=== PATIENT | female | born 1965 | race Two or more races ===

== ENCOUNTER 2016-08-19 19:53 | Emergency (ER) | payer OTHER ==
[~2016-08-19] VITALS: Ht 165.1 cm; Wt 93.9 kg
[~2016-08-19 19:53] MED LIST: LISIPOW; NOVOLOG
[2016-08-19] MEDS ORDERED: KETOROLAC TROMETH 60MG/2ML VIAL IM ONE (21:15)
[2016-08-19 21:23] VITALS: BP 153/77
== END 2016-08-19 22:03 | disposition home or self-care (01) ==
LOC: ER 19:58
DX: G44.209 Tension-type headache, unspecified, not intractable (principal)
CPT/HCPCS: 70450; 96372; 99284; J1885

== ENCOUNTER 2022-05-06 09:06 | Emergency (ER) | payer MEDICAID, OTHER ==
[~2022-05-06] VITALS: Ht 165.1 cm; Wt 114.5 kg
[2022-05-06 09:13] VITALS: BP 155/54
[2022-05-06] MEDS ORDERED: cloNIDine HCL 0.1 MG TAB PO ONE (09:30)
[2022-05-06 09:54] LABS: Urine Bacteria NONE SEEN /hpf (None Seen); Urine Blood 2+ /uL (Negative); Urine Specific Gravity 1.032 (1.001-1.035); Urine WBC 2 /hpf (0 - 5)
[2022-05-06 10:05] LABS: Basophils # (auto) 0 10 ^3/uL (0-0.2); Basophils % (auto) 0.7 % (0.0-2.0); Eosinophils # (auto) 0.1 10 ^3/uL (0-0.8); Eosinophils % (auto) 2.1 % (0.0-7.0); Hematocrit 37.5 % (36.0-46.0); Hemoglobin 12.1 g/dL (12.2-16.2); Lymphocytes # (auto) 1.4 10 ^3/uL (0.4-5.4); Lymphocytes % (auto) 23.9 % (10.0-50.0); Mean Corpuscular Hemoglobin 28.4 pg (28.0-32.0); Mean Corpuscular Hgb Conc. 32.2 g/dL (32.0-36.0); Mean Corpuscular Volume 88.1 fL (80.0-100.0); Monocytes # (auto) 0.3 10 ^3/uL (0-1.3); Monocytes % (auto) 4.5 % (0.0-12.0); Neutrophils # (auto) 3.9 10 ^3/uL (1.6-8.6); Neutrophils % (auto) 68.8 % (37.0-80.0); Red Blood Cells 4.26 10^6/uL (4.0-5.20); Red Cell Distribution Width 15.8 % (11.8-14.3); White Blood Cell 5.7 10^3/uL (4.4-10.8)
[2022-05-06 10:23] LABS: Albumin 3.3 g/dL (3.4-5.0); Calcium 8.9 mg/dL (8.5-10.1); Potassium 4.4 mmol/L (3.5-5.1)
[2022-05-06 10:28] LABS: BUN/Creatinine Ratio 22.3; Bilirubin, Total 0.2 mg/dL (0.2-1.0); Total Protein 7.2 g/dL (6.4-8.2)
[2022-05-06] MEDS ORDERED: medroxyPROGESTERone ACETATE 5 MG TAB PO ONE (11:15)
== END 2022-05-06 12:51 | disposition home or self-care (01) ==
LOC: ER 09:06
DX: N93.8 Other specified abnormal uterine and vaginal bleeding (principal); I10 Essential (primary) hypertension; D21.9 Benign neoplasm of connective and other soft tissue, unspecified; E11.65 Type 2 diabetes mellitus with hyperglycemia; Z90.49 Acquired absence of other specified parts of digestive tract
CPT/HCPCS: 36415; 76856; 80053; 81001; 85025